=== PATIENT | female | born 1960 | race Caucasian/White ===

== ENCOUNTER → 2018-01-22 10:36 | Outpatient (CLI) | payer MEDICAID, SELFPAY ==
--- NOTE | 2018-01-22 | IMM_PTH ---
PATIENT: ILSA GALEAS LOC: [facility] U#:[id number] AGE/SX: 65/F ROOM: RE01/22/[address]: Dr. Cele Jameson MD : 1960 BED: DIS: SPEC #: [id number] RECD: 01/26/18 09:51 STATUS: LUCY REQ #: [id number] GARRETT: 01/22/18 00:[address]: Cele Jameson DEPT: IMMUNOHISTOCHEMISTRY RECD BY: Fariba Brown ENTERED: 01/26/18 09:53 SP TYPE: IMMUNO OTHR DR: Dr. Lowell Trivedi DO Tissues: Right breast, NOS Procedures: CALPONIN-1 (add) CK8 (add) E-CAD (add) HER2 BI (add) HI (add) P40 (add) ER (initial) PHYSICIAN & INSTITUTION [place] [id number] SPECIMEN INFORMATION: Tissue Source: Right breast Clinical Info: Calcifications right breast superior lateral quadrant posterior depth Specimen Number: [id number] #1 CPT code: 98259, 48779 x3, 46661 x3 METHODOLOGY: Deparaffinized sections of prefer/formalin-fixed tissue or PAP/DQ stained slides are incubated with monoclonal/polyclonal antibodies/oligonucleotide probes. Localization is made via biotin free immunoperoxidase method. Appropriate controls are performed and reacted as expected. Results on target cell population are indicated in the following table: RESULTS: ANTIBODY / CLONE RESULT Block 1 E-Cad (ECH-6) positive CK8 (02vfblV13) positive P40 (BC28) positive Calponin-1 (MB229Z) positive MORPHOMETRIC ANALYSIS ER (clone 6F11) positive (variable, 83 to >95%, moderate) HI (clone 16/1E2) positive (variable, 5 to 25%, weak) Her-2Neu (clone CB11) negative (1+) The prognostic test for HER2 is performed on formalin-fixed paraffin embedded tissue. A 3+ (positive) staining pattern is defined as intense, homogeneous, complete, circumferential membranous staining in >10% of contiguous tumor cells. A similar weak (2+) staining pattern is interpreted as equivocal. ROSEANN follow-up testing is recommended for all equivocal cases. Positivity/negativity for ER/HI is reported if > or < 1% of the tumor cells are immuno- reactive, respectively. The ASCO/CAP criteria is used for scoring. Reference: Journal of Clinical Oncology, 2013; 31:7453-8655 & 2010; 16:8322-1912. Duration of fixation: 72 Hrs; Sample Adequate: Yes. These assays have not been validated on decalcified tissues. Results should be interpreted with caution given the likelihood of false negativity on decalcified specimens. These tests were developed and their performance characteristics determined by [facility]. They may not have been cleared or approved by the U.S. Food and Drug Administration. The FDA has determined that such clearance or approval is not necessary. 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 SJ:vandana 01/27/18
--- NOTE | 2018-01-22 | BRBX_PTH ---
PATIENT: ILSA GALEAS LOC: [facility] U#:[id number] AGE/SX: 65/F ROOM: RE01/22/[address]: Dr. Cele Jameson MD : 1960 BED: DIS: SPEC #: [id number] RECD: 01/22/18 15:34 STATUS: LUCY RE #: [id number] GARRETT: 01/22/18 00:[address]: Cele Jameson DEPT: SURGICAL PATHOLOGY RECD BY: Gilberto Padron ENTERED: 01/23/18 07:48 SP TYPE: BREAST BX MARIAM DR: Dr. Lowell Trivedi DO Tissues: Right breast, NOS Procedures: Surgery Specimen Level IV HEADER OPERATION: Right breast stereotactic biopsy PRE-OP DIAGNOSIS: Calcifications right breast superior lateral quadrant posterior depth TISSUE SUBMITTED: Right breast core tissue ISCHEMIC TIME: 1 minute FIXATION TIME: 72 hours MICROSCOPIC DIAGNOSIS Right breast, superior lateral quadrant posterior depth, stereotactic core biopsy: Ductal carcinoma in situ with the following characteristics: Pattern ? solid and comedo Nuclear Grade ? high Necrosis ? present (expansive comedo necrosis). Calcifications ? see comment. LIZZY:vandana 01/26/18 COMMENT Some of ducts show complete replacement by calcification most likely ducts involved by ductal carcinoma in situ. Calcifications are also noted in the benign breast tissue. Immunohistochemistry ([id number]) supports the above diagnosis. ER/TX/Vmk0rsp studies are being performed on sections of tumor and the results from this study will be reported separately ([id number]). MICROSCOPIC DESCRIPTION Slides are reviewed. GROSS DESCRIPTION Received is one container labeled with the patient's name and not further designated. The specimen consists of multiple irregular and elongated fragments of yellow-robles soft tissue that in aggregate measure 5 x 3 x 0.2 cm. The specimen is totally submitted in two cassettes. / AM:vandana 01/23/18 TC:0 CPT: 86710
--- NOTE | 2018-01-22 16:01 | PCM.OPRPT ---
Report of Operation Date of Procedure: 01/22/18 Pre-Operative Diagnosis: abnormal calcifications seen on right breast mammograms Post-Operative Diagnosis: same Surgery/Procedure Performed:: right stereotactic breast biopsy Description of Surgical Findings:: upper outer quadrant of breast contained abnormal calcifications - near chest wall Type of Anesthesia:: Local - 1% xylocaine Anesthesiologist: none Specimen's removed: right breast tissue Estimated Blood Loss (mL): < 1 ml Fluids Replaced: none Description of Procedure: After informed consent was given, the patient was brought into the breast biopsy suite. Appropriate time out protocol was followed. She was then placed in the prone position on the stereotactic biopsy table. The patients right breast was then placed at the opening at the head of the table. A branch operation evaluation manager compression mammogram was then obtained in the CC view. The suspicious radiological lesion was then identified. Stereo pictures of the lesion were then taken for XYZ coordinates. The Mammotome biopsy stylus was then positioned where it would be entering into the patients breast. The skin at this site was then cleansed with a surgical skin preparation. The skin and subcutaneous tissues at this site were then infiltrated with 1% xylocaine. A small skin incision was made with an 11 blade scalpel. The biopsy stylus was then positioned into the patients breast at the proper coordinates of depth. Using the Mammotome vacuum-assist device, several core samples of breast tissue were obtained. A specimen mammogram was the obtained and revealed that the abnormal calcifications were within the specimen. A hemostatic marker clip was then placed into the biopsy cavity and a branch operation evaluation manager film revealed that it was properly deployed. The patient was then placed in the supine position and pressure was applied to the breast until no active bleeding was noted. Steristrips were applied to reapproximate the skin. A unilateral mammogram in the CC and MLO view were then taken which revealed that the marker clip was in the same area as the previous suspicious lesion. The patient tolerated the procedure well and was discharged from the breast biopsy suite in good condition. - Complications none noted
--- NOTE | 2018-01-22 16:05 | OP.PCM_ITS ---
Report of Operation Date of Procedure: 01/22/18 Pre-Operative Diagnosis: abnormal calcifications seen on right breast mammograms Post-Operative Diagnosis: same Surgery/Procedure Performed:: right stereotactic breast biopsy Description of Surgical Findings:: upper outer quadrant of breast contained abnormal calcifications - near chest wall Type of Anesthesia:: Local - 1% xylocaine Anesthesiologist: none Specimen's removed: right breast tissue Estimated Blood Loss (mL): < 1 ml Fluids Replaced: none Description of Procedure: After informed consent was given, the patient was brought into the breast biopsy suite. Appropriate time out protocol was followed. She was then placed in the prone position on the stereotactic biopsy table. The patient?s right breast was then placed at the opening at the head of the table. A office messenger helper compression mammogram was then obtained in the CC view. The suspicious radiological lesion was then identified. Stereo pictures of the lesion were then taken for XYZ coordinates. The Mammotome biopsy stylus was then positioned where it would be entering into the patient?s breast. The skin at this site was then cleansed with a surgical skin preparation. The skin and subcutaneous tissues at this site were then infiltrated with 1% xylocaine. A small skin incision was made with an 11 blade scalpel. The biopsy stylus was then positioned into the patient?s breast at the proper coordinates of depth. Using the Mammotome vacuum-assist device, several core samples of breast tissue were obtained. A specimen mammogram was the obtained and revealed that the abnormal calcifications were within the specimen. A hemostatic marker clip was then placed into the biopsy cavity and a office messenger helper film revealed that it was properly deployed. The patient was then placed in the supine position and pressure was applied to the breast until no active bleeding was noted. Steristrips were applied to reapproximate the skin. A unilateral mammogram in the CC and MLO view were then taken which revealed that the marker clip was in the same area as the previous suspicious lesion. The patient tolerated the procedure well and was discharged from the breast biopsy suite in good condition. - Complications none noted
== END ==
PROVIDERS: Family Provider Student in an Organized Health Care Education/Training Program; PCP Student in an Organized Health Care Education/Training Program; Visit Provider Surgery
DX: D05.11 Intraductal carcinoma in situ of right breast (principal); J42 Unspecified chronic bronchitis; R53.82 Chronic fatigue, unspecified; K58.0 Irritable bowel syndrome with diarrhea; M79.7 Fibromyalgia; Z79.52 Long term (current) use of systemic steroids; Z79.899 Other long term (current) drug therapy
CPT/HCPCS: 19081; 88305; 88341; 88342; J7050

== ENCOUNTER 2018-02-16 07:28 | Day surgery (SDC) | payer MEDICAID, SELFPAY ==
--- NOTE | 2018-02-16 | BRBX_PTH ---
PATIENT: ILSA GALEAS LOC: [facility] [place] U#:[id number] AGE/SX: 58/F ROOM: RE02/16/[address]: Dr. Cele Jameson MD : 1960 BED: DIS: 02/16/2018 SPEC #: [id number] RECD: 02/16/18 11:46 STATUS: LUCY REAyo #: [id number] GARRETT: 02/16/18 00:[address]: Cele Jameson DEPT: SURGICAL PATHOLOGY RECD BY: Fariba Brown ENTERED: 02/16/18 12:41 SP TYPE: BREAST BX OTHR DR: Dr. Lowell Trivedi DO Tissues: A - Right breast, NOS B - Right breast, NOS Procedures: Surgery Specimen Level IV HEADER OPERATION: Right breast lumpectomy NL, frozen section PRE-OP DIAGNOSIS: Ductal carcinoma in situ right breast TISSUE SUBMITTED: A ? Right breast lumpectomy sent to lab at 1138, B ? Right breast lumpectomy anterior margin MICROSCOPIC DIAGNOSIS A. Right breast, lumpectomy with needle localization: Focal ductal carcinoma in situ. Changes consistent with previous biopsy site. See cancer summary below. B. Right breast, lumpectomy anterior margin: Fragment of fibroadipose tissue and skin, negative for carcinoma. SJ:vandana 02/19/18 COMMENT DUCTAL CARCINOMA IN SITU SUMMARY: Specimen - lumpectomy Procedure - excision with wire-guided localization Lymph node sampling ? no lymph nodes present Specimen integrity ? multiple designated specimens (A & B) Specimen size ? lumpectomy - 4.5 x 3.5 x 1.5 cm and additional anterior margin - 1.5 x 2 x 0.3 cm. Specimen laterality ? right Tumor site ? superior lateral quadrant (as per clinical information) Size (extent) of DCIS ? 0.3 x 0.2 cm Number of blocks with DCIS - 1 Number of blocks examined ? 12 Histologic type - ductal carcinoma in situ Architectural patterns ? solid Nuclear grade - high Necrosis - present, focal, single cell necrosis. A few of the ducts are completely replaced by the calcification, most likely represents involvement by ductal carcinoma in situ.. Margins ? uninvolved by ductal carcinoma in situ. The tumor is 0.4 cm away from the closest anterior margin (lumpectomy specimen). Treatment effect - no known presurgical therapy Lymph nodes ? no lymph nodes present Distant metastasis ? not applicable Additional Pathologic Findings ? fibrocystic changes - changes consistent with previous biopsy site.. Ancillary Studies from previous specimen ([id number] / [id number]): ER ? positive (variable, 83 to 95%, moderate) CT ? positive (variable, 5 to 25%, weak) Her2 neri ([facility]) ? negative (1+) Her2 by FISH - not performed. Microcalcifications ? present in ductal carcinoma in situ. Clinical history - Please make reference to previous specimen ([id number]) right breast, superior lateral quadrant posterior depth, stereotactic core biopsy with diagnosis of ductal carcinoma in situ. Pathologic Staging: pTis pNx Mx The above summary is in compliance with [employer] [place] [employer] (CAP) Cancer Protocols Checklist and [place] Joint Committee on Cancer (AJCC), Staging Manual, 8th Ed. Case has been reviewed in consultation with Dr. Hurst who concurs with the above diagnosis. IDC:AM MICROSCOPIC DESCRIPTION Slides are reviewed. GROSS DESCRIPTION A - Received fresh for intraoperative consultation labeled with the patient's name is a specimen designated right breast lumpectomy with wire. The specimen consists of a piece of robles-yellow fibroadipose tissue with needle localization measuring 4.5 x 3.5 x 1.5 cm. The specimen is oriented as follows: two short ? medial border, one long ? lateral border, one short ? superior border. The specimen is inked as follows: anterior ? yellow, posterior ? black, superior ? blue, inferior ? green, medial ? red and lateral ? orange. The specimen is serially sectioned and reveals one small biopsy cavity measuring 0.5 cm in greatest dimension. The biopsy cavity is 0.2 cm away from the closest anterior margin. This information was conveyed to the surgeon intraoperatively. Sections of the rest of the specimen reveal robles-yellow fibroadipose cut surfaces with a scant fibrous area. The entire specimen is submitted in seven cassettes from medial to lateral margins of the specimen. Sections will be submitted after the infusion cycle. / SJ:vandana 02/16/18 B Received in fixative is one container labeled with the patient's name and designated right breast lumpectomy anterior margin. The specimen consists of two pieces of yellow adipose tissue measuring in aggregate 1.5 x 2 x 0.3 cm. The entire specimen is submitted in one cassette. / SJ:vandana 02/17/18 TC:0 CPT: 69812, 90265, 50628
--- NOTE | 2018-02-16 07:48 | BI_ITS ---
SURGICAL BREAST SPECIMEN RADIOGRAPH CLINICAL: Document presence of calcifications in biopsy specimen. FINDINGS: Specimen shows presence of calcifications. Electronically Signed: Kunal Gandhi MD at 12:37 EDT Tel [phone], Service support , BI/Breast Biopsy Specimen
[2018-02-16 08:03] VITALS: BP 119/75; PULSE 73; RESP 14; TEMP 37.2; O2SAT 98; BMI 18.1
--- NOTE | 2018-02-16 10:55 | PCM.IMDPSTOP ---
Immediate Post-Op Note Date of Procedure: 02/16/18 Primary Surgeon/Physician: Cele Jameson bowling ball grader and marker: LEONARDO COTA student Pre-Operative Diagnosis: right breast DCIS Post-Operative Diagnosis: same Surgery/Procedure Performed:: right breast lumpectomy via wire localization Description of Surgical Findings:: tail of xavier lesion, close to muscle Estimated Blood Loss: < 5 ml Specimen's removed: right lumpectomy tissue Type of Anesthesia:: General ASA Class: ASA2 Mod Systematic Disease - Admit VTE Documentation VTE Present on Admission: Yes VTE Mechan Device Prophylaxis: SCD's
--- NOTE | 2018-02-16 10:56 | PCM.DC.BS ---
Discharge Diet: No Restrictions Discharge Activity: Return to Normal Activity, May not drive while taking narcotic pain medications. Lifting Restrictions: no lifting greater than 10 pounds with right arm until further notice Call your doctor if your incision/area has: Continuous Slow Oozing, Foul Smelling Discharge Call your doctor if you observe: Fever of 101 or Higher Additional Dressing/Incision Instructions:: Leave dressing in place. May get wet in shower. Do not soak = no tub baths/swimming Allergies/Adverse Reactions: Allergies Penicillins Allergy (Verified 02/10/18 10:45) Swelling verapamil Allergy (Verified 02/10/18 10:45) Rash Medications to take at Discharge Albuterol Inhaler [Ventolin Hfa (SP)] 2 puff INHALATION Q4H PRN PRN 03/01/15 Budesonide/Formoterol 80-4.5 [Symbicort 80-4.5 Mcg Inhaler] 2 puff INHALATION BID 03/01/15 Calcium Carbonate 600 mg PO DAILY 03/01/15 Dicyclomine HCl [Bentyl] 10 mg PO ACHS PRN 03/01/15 Losartan Potassium [Cozaar] 50 mg PO DAILY 03/01/15 Montelukast [Singulair] 10 mg PO DAILY 03/01/15 Multivit with Calcium,Iron,Min [Multiple Vitamins For Women] 1 each PO DAILY 03/01/15 Potassium Chloride [Klor-Con M20] 20 meq PO DAILY 03/01/15 Hydrocodone/Acetaminophen [[place] 5-325 Tablet] 1 ea PO Q6H PRN PRN 5 Days #20 tab 02/16/18 The following prescriptions were given: Hydrocodone/Acetaminophen [[place] 5-325 Tablet] 1 ea PO Q6H PRN PRN 5 Days #20 tab PRN Reason: Pain Primary Care Physician: Lowell Trivedi DO [Primary Care Provider] - Please Follow Up With: Cele Jameson MD - call When: to be seen in about one week, please call for date and time, thank you
[2018-02-16] MEDS: Bupiv/Epi 0.5% Mpf 30 ML Vial (11:20)
--- NOTE | 2018-02-16 12:14 | OP.PCM_ITS ---
Report of Operation Date of Procedure: 02/16/18 Pre-Operative Diagnosis: right breast DCIS Post-Operative Diagnosis: same Surgery/Procedure Performed:: right breast lumpectomy via wire localization Description of Surgical Findings:: tail of Mills lesion, close to muscle, biopsy cavity was 0.2 cm from anterior margin, more anterior margin taken roller shop supervisor: CIPRIANO,LEONARDO BURNETT student Type of Anesthesia:: General Anesthesiologist: Param Phelps Specimen's removed: right lumpectomy tissue, anterior margin Drains: none Estimated Blood Loss (mL): < 5 ml Fluids Replaced: see anesthesia note Description of Procedure: After informed consent was given, the patient was brought into the Breast Stereotactic Radiology suite. Appropriate time out protocol was followed. She was then placed in the prone position on the [place] stereotactic table. The patient?s left breast was placed in the opening at the head of the table. A neurology director compression mammogram was then obtained in the lateral view. The marker clip that was previously placed was identified. Stereo pictures of the lesion were then taken for XYZ coordinates. The Kopans needle was then positioned where it would be entering into the patient?s breast. The skin at this site was then cleansed with a surgical skin preparation. The skin and subcutaneous tissues at this site were then infiltrated with 1% xylocaine. The Kopans needle was then positioned into the patient?s breast at the proper coordinates of depth. The patient was then placed in the supine position and the wire was taped into place. A unilateral mammogram in the CC and MLO view were then taken for use in the OR. The patient tolerated this portion of the procedure well and was brought to the AC awaiting surgery in the OR. The patient was then brought to the Operating Room and placed on the operating table in the supine position. Appropriate time out protocol was followed. A wire had already been placed in the stereotactic biopsy room in the radiology department as described above. The left breast with the wire in placed was then prepped with a sterile surgical skin preparation and sterile surgical drapes were placed. The skin and subcutaneous tissues at the site of the breast lesion was then infiltrated with local anesthetic. The lesion and wire location was in the upper outer quadrant of the left breast. A transverse skin incision was then made with a 15 blade scalpel in the upper outer quadrant of the right breast - tail of Mills area. It was carried down through to the subcutaneous tissues. Hemostasis was controlled with electrocautery. The wire was then palpated out. The breast tissue surrounding the wire was then carefully palpated out and from the surrounding tissues using electrocautery. The posterior margin of the breast lesion was at the pectoralis fascia. The breast tissue, once from the breast, was then forwarded to the radiology department, where a specimen mammogram revealed that the biopsy cavity was within the specimen. No marker clip was identified, however it was noted in the wound and removed by me. Therefore the marker clip was not in the specimen mammogram. The breast tissue was then forwarded to pathology for analysis. Pathology review revealed that the closest margin was anterior and 0.2 cm. Therefore, further tissue was taken - that is, the anterior margin. The wound cavity was carefully examined. No further suspicious tissue was palpated or visualized. Hemostasis was carefully controlled with electrocautery. The subdermal tissues were then approximated with vicryl suture. The incision was then reapproximated close using running monocryl suture. Cavilon and steristrips were then placed to reinforce the skin closure. A sterile dressing was then applied. The patient was then brought to the Recovery Room in stable condition. - Complications none noted - Admit VTE Documentation VTE Present on Admission: Yes VTE Mechan Device Prophylaxis: SCD's
[2018-02-16 12:17] VITALS: BP 119/75; BP 137/76; PULSE 82; RESP 16; TEMP 36.4; O2SAT 97
[2018-02-16 12:30] VITALS: BP 119/75; BP 141/82; PULSE 72; RESP 16; O2SAT 93
[2018-02-16 12:45] VITALS: BP 119/75; BP 128/73; PULSE 78; RESP 16; O2SAT 94
[2018-02-16 12:50] VITALS: BP 119/75; BP 130/79; PULSE 70; RESP 16; TEMP 37.1; O2SAT 93
[2018-02-16] MEDS: HYDROcodone Bitartrate/Apap 5/325 Tablet PO (13:21)
[2018-02-16 15:00] VITALS: BP 119/64; BP 119/75; PULSE 70; RESP 16; TEMP 36.6; O2SAT 95
== END 2018-02-16 15:15 | disposition home or self-care (01) ==
LOC: SDC 07:37 → AC 07:41
PROVIDERS: Family Provider Student in an Organized Health Care Education/Training Program; PCP Student in an Organized Health Care Education/Training Program; Visit Provider Surgery
PROC: (CPT 19301; principal; 2018-02-16 08:45)
DX: D05.11 Intraductal carcinoma in situ of right breast (principal); I10 Essential (primary) hypertension; R53.82 Chronic fatigue, unspecified; M79.7 Fibromyalgia; E87.6 Hypokalemia; K58.9 Irritable bowel syndrome, unspecified; J45.909 Unspecified asthma, uncomplicated; K21.9 Gastro-esophageal reflux disease without esophagitis; Z78.0 Asymptomatic menopausal state; Z79.899 Other long term (current) drug therapy; Z79.52 Long term (current) use of systemic steroids; Z90.49 Acquired absence of other specified parts of digestive tract
CPT/HCPCS: 00400; 19301; 19281; 76098; 88305; J7120; J2405

== ENCOUNTER 2020-10-20 06:56 | Outpatient (RCR) | payer MEDICAID, SELFPAY ==
[2020-10-20] MEDS: COVID-19 VACC, MRNA(PFIZER)/PF 30 MCG/0.3 ML SYRINGE IM (14:24)
[2020-11-10] MEDS: COVID-19 VACC, MRNA(PFIZER)/PF 30 MCG/0.3 ML SYRINGE IM (14:06)
== END 2021-01-16 23:59 ==
LOC: IMMUN 06:56
PROVIDERS: PCP Student in an Organized Health Care Education/Training Program; Referring Provider Family Medicine; Visit Provider Family Medicine
DX: Z23 Encounter for immunization (principal)
CPT/HCPCS: 0001A; 0002A; 91300

== ENCOUNTER 2024-09-09 09:00 | Outpatient (RCR) | payer MEDICARE, MEDICAID, SELFPAY ==
--- NOTE | 2024-07-15 11:51 | HP.OTEVAL ---
Patient's Visit Information Visit Information Visit Information: ILSA GALEAS is a 64 year old F, referred to Occupational Therapy by MAYCO MEZA, with a diagnosis of M35.1 mixed connective tissue disease, R76.8 and M19.90. Date of Evaluation: 07/15/24 Occupational Therapist: Caryn Oliveira Subjective Subjective: This 64 year old female arrives symptoms started in January R hand IF swollen and painful. pt went to see corporate security manager. synovial test performed shows mild active synovitis at the R fourth MCP joint and the L ulnocarpal joint. Pt dx mixed connective tissue disease, positive sm/C4 PLANNER antibody, inflammatory arthritis. Pt reports her main concern is stiffness and pain as well as dropping of items. 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 Pt stats carpal tunnel dx approx 30 years ago which she has been able to keep managed. pt does have extensive hx of ca as well as fibromyalgia. pt is L hand dominant. Pain R hand: Current Pain Intensity: 4 Pain Intensity Range: 8 Objective Objective/Observation: pt arrives no hand deformity noted at this time R hand IF PIP joint appears slightly swollen all other aspects of hand appear to be equal to non affected side. ROM Wrist: R 50/55 L 50/60 CMC: wfl MP: wfl IP: wfl Radial Abduction: wfl Palmar Abduction: wfl Opposition: wfl MP: wfl PIP: wfl DIP: wfl ROM Comments: feels pulling sensation with composite fist in IF per pt was struggling with ROM of IF unable to get all the way down however is able to this date and measurements consistent with unaffceted UE Strength Putty Tinter Maker: R hand 40# L hand 45# Lateral Pinch: R 8# L 10# Tripod Pinch: R 10# L 10# Edema Wrist: R 14 cm L 14 cm PIP: R IF 6.5 cm L 6 cm Other: MPs R 17.5 cm L 17.5 cm Sensation Sensation Comments: denies changes in sensation Nine Hole Peg Right: 30 sec Left: 24 sec In-Hand Manipulation Finger to Palm Translation: Normal - Right and Normal - Left Quick DASH-Disab of Arm,Shoulder& Hand Quick DASH Score: 50.0000 Goals Goal:ROM equal to unaffected hand: Yes Goal:Putty Tinter Maker/Pinch strength at least 75% of unaffected hand: Yes Goal:No pain with affected hand use: Yes Goal:PIP Circumferences equal to unaffected hand: Yes Goal:Full use of affected hand in daily activities including work: Yes Other Goal: pt will improve quick dash score by 10 points or more in order to increase functional use of R hand during daily tasks pt will verbalize/ demonstrate 100% accuracy in proper joint protection and positioning in order to prevent damage to joint during day to day tasks pt will verbalize/ demonstrate 100% accuracy in proper compression gloves and or bracing to hands in order to decrease swelling and stiffness and promote ROM for improved functional use of hands Rehabilitation General Assessment: This 64 year old female arrives with dx of mixed connective tissue disease, positive sm/C4 PLANNER antibody, and inflammatory arthritis. Pt presents with pain as well as feeling of stiffness in R hand. pt with slight difference in ROM R hand compare to L. pt does demonstrate swelling at R hand IF PIP joint as well as decreased hand grasp. pt would benefit from OT services 1x a week for 4-6weeks in order to provide ed and training in task modification, compensatory strategies, bracing, swelling management, joint protection as well as gentle pain free exercise to promote ROM strength and decreased inflammation for functional use of hands. Rehabilitation Potential: Good Anticipated Interventions Anticipated Interventions: A/AAROM/PROM, Strengthening, Edema Control, Triggerpoint Release, Modalities, Orthoses, Joint Protection/Energy Conservation, Education re Diagnosis and Home Program Visit Plan Frequency: 1x/Week Duration: 4-6 Weeks General Plan: AROM/AAROM/PROM edema management strengthening bracing as needed activity modification TEXT: Thank you for the opportunity to evaluate your patient. For Medicare and Medicare HMO plans, please review the plan of care and approve it. It will need to be FAXED BACK to us at [phone] for Medicare purposes. Please let me know if there are questions or concerns regarding this plan of care. Physician Signature: Date:
--- NOTE | 2024-08-26 09:35 | OTREVAL_ITS ---
Re-Evaluation Intro: MAYCO MEZA, It has been my pleasure to treat ILSA GALEAS over the last 7 visits for M35.1 mixed connective tissue disease, R76.8 and M19.90. Please see the progress note below for an update on the occupational therapy plan of care! Subjective Subjective: arrives feeling stiff and painful today possible due to weather. arrives 4 min late due to weather. Objective Objective/Function: update in POC this date addition of 2 weeks focus on training in stability exercise of B wrist and hand as well as the incorporation of proprioceptive activities. pt is progressing in POC and believes therapy is helping at this time would like to continue and progress to stability exercises to work toward return to full use of hands R emergency medicine nurse practitioner 20# L emergency medicine nurse practitioner 20# R lateral 5# L lateral 8# R tripod 8# L tripod 8# pt emergency medicine nurse practitioner strength has decreased since time of eval --- POC extended x2 weeks focus on gentle strengthening and assure pt understands things she can complete at home for carryover Plan Plan Frequency: 1x/Week Duration: 2 Weeks Visits in this POC: (No limit-Med Ashley) 4-6 weeks (1x weeks) Plan: Continue POC: 2 weeks (1x week) Goals Goals Patient Goals: Regain Strength, Decrease Pain, Decrease Swelling/Stiffness, Use Hand/Wrist/Arm Normally Again, Increase ROM, Resume Former Household Responsibilities (Cooking,Cleaning,Yard, etc.) and Resume Hobbies Goal:ROM equal to unaffected hand: Yes Goal:Ceramic Products Sales Engineer/Pinch strength at least 75% of unaffected hand: Yes Goal:No pain with affected hand use: Yes Goal:PIP Circumferences equal to unaffected hand: Yes Goal Progress: Goal Met Goal:Full use of affected hand in daily activities including work: Yes Other Goal: pt will improve quick dash score by 10 points or more in order to increase functional use of R hand during daily tasks pt will verbalize/ demonstrate 100% accuracy in proper joint protection and positioning in order to prevent damage to joint during day to day tasks GOAL MET pt will verbalize/ demonstrate 100% accuracy in proper compression gloves and or bracing to hands in order to decrease swelling and stiffness and promote ROM for improved functional use of hands GOAL MET Anticipated Interventions Anticipated Interventions Anticipated Interventions: A/AAROM/PROM, Strengthening, Edema Control, Triggerpoint Release, Modalities, Orthoses, Joint Protection/Energy Conservation, Education re Diagnosis and Home Program Re-Evaluation Ending Re-evaluation ending: Please do not hesitate to contact me at [phone] by phone or if you have questions or concerns regarding this new plan of care! Sincerely, Caryn Oliveira
--- NOTE | 2024-11-18 10:12 | HP.OT.NRP ---
Patient Information Patient Information: ILSA GALEAS was seen in my office for initial evaluation on 07/15/24. The following Plan of Care was established for this patient: POC Established Initial Frequency: 1x/Week Initial Duration: 2 Weeks Plan: today was last scheduled visit. to keep track open for 2-3 months in case needing follow up appointment per pt request Anticipated Interventions Anticipated Interventions: A/AAROM/PROM, Strengthening, Edema Control, Triggerpoint Release, Modalities, Orthoses, Joint Protection/Energy Conservation, Education re Diagnosis and Home Program Last Seen Last Seen: This patient was last seen in our office 09/09/24. Pertinent comments regarding their Occupational therapy will appear below: This 64 year old female seen for OT with dx of mixed connective tissue disease. pt progressed in POC decreased pain improved ROM as well as strength. discharge at this time due it lapse in time of services with no appointments scheduled at this time. At this point I will be discontinuing this patient from occupational therapy. I would be happy to see this patient again in the future if found appropriate by the physician. Thank you! Caryn Oliveira
== END 2024-09-09 19:00 | disposition home or self-care (01) ==
LOC: OT 09:00
PROVIDERS: PCP Student in an Organized Health Care Education/Training Program
DX: M35.1 Other overlap syndromes (principal); M19.90 Unspecified osteoarthritis, unspecified site; R76.8 Other specified abnormal immunological findings in serum
CPT/HCPCS: 97035; 97110; 97140; 97165; 97530

== ENCOUNTER 2025-03-14 13:00 | Outpatient (RCR) | payer MEDICARE, MEDICAID, SELFPAY ==
--- NOTE | 2025-02-23 15:41 | HP.OTEVAL_ITS ---
Patient's Visit Information Visit Information Visit Information: ILSA GALEAS is a 65 year old F, referred to Occupational Therapy by MAYCO MEZA, with a diagnosis of CTS. Date of Evaluation: 02/23/25 Occupational Therapist: ELIO Navarrete/Stephanie, CHT Subjective Subjective: This 65 year old female was seen for OT eval with dx of Bilateral CTS. pt states back in November 2024 she began having increase pain and symptoms. Pt states she tried putting an brooke wrap but has not able to decrease her symptoms. Pt states she has used compression gloves and they are still helpful. Pt states she is very active and would like to be able to perform daily tasks without discomfort/pain. Pain left hand/wrist: Current Pain Intensity: 4 Pain Intensity Range: 4 and 5 right hand/wrist: Current Pain Intensity: 4 Pain Intensity Range: 4 and 5 ROM Wrist: right 60/50 left 55/50 CMC: right 10 left 10 MP: right 55 left 55 IP: right 60 left 55 Strength Front Office Associate: right 35# left 45# Lateral Pinch: right 6# left 8# Tripod Pinch: right 8# left 8# Sensation Thumb: right 2.83 left 2.83 interpretation Normal sensation Index: right 2.83 left 2.83 interpretation Normal sensation Middle: right 2.83 left 2.83 interpretation Normal sensation Ring: right 2.83 left 2.83 interpretation Normal sensation Little: right 2.83 left 2.83 interpretation Normal sensation Nine Hole Peg Right: 23.90 sec. Left: 20.85 sec. Quick DASH-Disab of Arm,Shoulder& Hand Quick DASH Score: 41.6650 Goals Goal:: pt will demo a increase in right manager of financial reporting strength by 8# to increase pts ind with ADLs by d.c pt will demo a increase in bilateral lateral pinch by 3# to increase pts ind. with ADLs by d/c Goal:: pt will report a reduction by 50% with using conservative tx methods for CTS by d.c Goal:: Pt will demo understanding of joint protection and ergonomics when performing BADLs and IADLs by d/c Pt will demo understanding of adaptive Equipment use to decrease stress on joints to allow pt to perform BADSL and IADLS at GARY level. Goal:: Pt will demo understanding of using supportive bracing 80% at night to decrease symptoms of CTS to allow healing and decrease pain by end of 2nd session. Rehabilitation General Assessment: pt demo with positive symptoms of CTS. pt is limited with use of bilateral hands for ADLs. Pt would benefit from skilled OT services 1-2x week for 4 weeks to decrease pts pain and return pt to her PLOF. Today therapist advised pt to use wrist brace at night- initiate median nerve glides. Pt demo understanding and agree to POC. Rehabilitation Potential: Good Anticipated Interventions Anticipated Interventions: Strengthening, Triggerpoint Release, Modalities, Orthoses, Joint Protection/Energy Conservation, Ergonomic Education, Education re assistive Equipment, Education re Diagnosis and Home Program Visit Plan Frequency: 1-2x /Week Duration: 4 Weeks TEXT: Thank you for the opportunity to evaluate your patient. For Medicare and Medicare HMO plans, please review the plan of care and approve it. It will need to be FAXED BACK to us at [phone] for Medicare purposes. Please let me know if there are questions or concerns regarding this plan of care. Physician Signature: Date:
--- NOTE | 2025-03-14 13:40 | HP.OTDCSUM_ITS ---
Discharge Summary D/C Summary: It has been my pleasure to treat ILSA GALEAS under orders from MAYCO MEZA, for the diagnosis of CTS for a total of 7 visit(s). Please see the following information for a summary of their discharge status. Overall Improvement % Improvement: 0 Objective Objective/Function: refrigeration mechanic strength 45# left 35# lateral pinch left 10# with noted lateral deviation of thumb and MP hyper ext with resistance. lateral pinch right 7# tripod pinch left 6# right 5# pt states she is aware of pinch little discomfort but no sharp pains. Goals Patient Goals: Decrease Pain, Decrease Swelling/Stiffness, Use Hand/Wrist/Arm Normally Again and Resume Former Household Responsibilities (Cooking,Cleaning,Yard, etc.) Goal:: pt will demo a increase in right refrigeration mechanic strength by 8# to increase pts ind with ADLs by d.c pt will demo a increase in bilateral lateral pinch by 3# to increase pts ind. with ADLs by d/c Goal:: pt will report a reduction by 50% with using conservative tx methods for CTS by d.c ( states sharp shooting pain has improved and denies numbness) Goal:: Pt will demo understanding of joint protection and ergonomics when performing BADLs and IADLs by d/c Pt will demo understanding of adaptive Equipment use to decrease stress on joints to allow pt to perform BADSL and IADLS at GARY level. Goal:: Pt will demo understanding of using supportive bracing 80% at night to decrease symptoms of CTS to allow healing and decrease pain by end of 2nd session. ( goal met) Plan Plan: pt to cont.with HEP and wait for nerve conduction test in Apr. D/C Information Discharge Comments: conservative tx for pts symptoms were not consistent. pt will have nerve conduction test in Apr. pt will cont. with UB strength/nerve glides/ use of bracing at night- lift ergo. pt agrees to d/c d/c sentence: If there are questions or concerns regarding this patient's occupational therapy, please fell free to call me at [phone]. Thank you for the referral of this patient. Sincerely, Nan Moura, OTR/L, CHT
== END 2025-03-14 15:04 | disposition home or self-care (01) ==
LOC: OT 13:00
PROVIDERS: PCP Student in an Organized Health Care Education/Training Program
DX: M19.90 Unspecified osteoarthritis, unspecified site (principal); M35.1 Other overlap syndromes; G56.03 Carpal tunnel syndrome, bilateral upper limbs
CPT/HCPCS: 97035; 97110; 97140; 97166; 97530

== ENCOUNTER → 2025-04-20 | Outpatient (CLI) | payer MEDICARE, MEDICAID, SELFPAY ==
--- NOTE | 2025-04-20 14:24 | NEURO_ITS ---
NCS and/or EMG Patient Report Ordering Doctor: Choco Rea DATE OF SERVICE: 04/20/25 Alissa presents with complaints of pain in both hands. Electrodiagnostic findings: Median motor nerve demonstrates normal distal latency, amplitude and conduction velocity bilaterally. Normal ulnar motor response bilaterally, including conduction across the elbows. Median ulnar F- wave?waves are within normal limits. Sensory responses are normal. Needle EMG testing was performed upper limbs. All muscles tested showed no evidence of denervation with normal motor unit action potentials. Electrodiagnostic impression: This is a normal electrodiagnostic study in both upper limbs. There is no electrodiagnostic evidence for peripheral neuropathy, including carpal tunnel or cubital tunnel syndrome. There is no electrodiagnostic evidence for cervical radiculopathy. Multi Select Codes Neurology Neurology Interp Codes: 01604-60 Musc test done w/n test comp (interp) (2) and 59547-59 Nrv cndj test 13/> studies (interp)
== END | disposition home or self-care (01) ==
LOC: PSN 12:26
PROVIDERS: PCP Student in an Organized Health Care Education/Training Program; Referring Provider Student in an Organized Health Care Education/Training Program; Visit Provider Student in an Organized Health Care Education/Training Program
DX: R20.2 Paresthesia of skin (principal); M25.532 Pain in left wrist
CPT/HCPCS: 95886; 95913